=== PATIENT | female | born 1990 | race Two or more races ===

== ENCOUNTER 2016-11-20 02:03 | Outpatient (CLI) | payer OTHER ==
[~2016-11-20 02:03] MED LIST: LEXA1TAB PO
--- NOTE | 2016-11-20 03:03 | IPNPDOC ---
Text Note Date of Service The patient was seen on 11/20/16. NOTE Subjective: Tracie is a 26yo with an IUP at 39w5d who presents to triage for cramping and spotting after intercourse. She states she had intercourse around 5pm and noted cramping after. Then, when she got up in the night, she noted vaginal spotting. course uncomplicated and PMHx noncontributory. ROS: Admits: Gross movement, poor PO hydration Denies: loss of fluid, fever, N/V, dysuria, vaginal itching or pain. Objective: Vitals wnl, afebrile NST: FHT 130 with moderate variability, pos accels, neg decels. Reactive NST. [place]: 1 ctx Physical Exam- General: WDWN gravid female in NAD Mental : AAOx3 Abdominal: Soft NT/ND without guarding or rebound Extremity: trace edema in LE bilaterally (SCE chaperoned by RN): 1/80/-1, soft, mid, scant blood noted on exam glove Assessment: Tracie is a 26yo with an IUP at 39w5d without evidence of latent or active labor. SCE 1/80/-1 with scant spotting on exam glove. Vitals stable with benign physical exam. Reactive NST with 1 ctx. course uncomplicated and PMHx noncontributory. Plan: -labor precautions discussed -f/u at next scheduled OB appt next week - kick counts prn -encouraged increased hydration and discussed how both intercourse and dehydration lead to cramping -Return precautions given for increased bleeding, fluid loss, increasingly frequent/painful contractions, decreased movement -medrec reviewed Dr. Manjeet Bowie MD LauraMANJEET Acuna MD Nov 20, 2016 03:03
[2016-11-20] MEDS ORDERED: PRENTAB9 PO (10:09)
== END 2016-11-20 02:50 | disposition home or self-care (01) ==
LOC: M LDO 02:03
PROVIDERS: ATTEND Obstetrics & Gynecology
DX: O26.893 Other specified pregnancy related conditions, third trimester (principal); Z3A.39 39 weeks gestation of pregnancy

== ENCOUNTER 2016-11-20 09:08 | Inpatient (IN) | payer OTHER ==
[2016-11-20] VITALS (40 sets, daily range): BP systolic 99–177; BP diastolic 50–119
[~2016-11-20] VITALS: Ht 165.1 cm; Wt 80.0 kg
[2016-11-20] MEDS ORDERED: LR 1,000 ML IV SCH (09:28)
[2016-11-20] MEDS ORDERED: LACTATED RINGER'S 1000 ML IV ONE (09:30)
[2016-11-20 10:01] LABS: MEAN CORPUSCULAR HEMOGLOBIN 30.7 pg (27.0-33.0); MEAN CORPUSCULAR HGB CONC 34.9 g/dl (32.0-36.5); MEAN CORPUSCULAR VOLUME 88.2 fl (80.0-96.0); RED CELL DISTRIBUTION WIDTH 13.9 % (11.5-14.5); WHITE BLOOD COUNT 11.6 K/mm3 (4.0-10.0)
[2016-11-20] MEDS ORDERED: PRENTAB9 PO (10:09)
[2016-11-20] MEDS ORDERED: FENTANYL 2MCG/ML ROPIVACAINE 0.2% IN 0.9% NACL 200ML IVBAG As Ordered ONE (10:27)
[2016-11-20] MEDS ORDERED: diphenhydrAMINE INJ 50MG/ML VIAL (J1200) IV PRN (11:15)
[2016-11-20] MEDS ORDERED: LACTATED RINGER'S 1000 ML IV PRN (11:15)
[2016-11-20] MEDS ORDERED: REFRIGERATOR IV KEYS XX PRN (11:15)
[2016-11-20] MEDS ORDERED: EPIDURAL COMMENT XX SCH (11:15)
[2016-11-20] MEDS ORDERED: EPIDURAL/PCA KEYS XX PRN (11:15)
[2016-11-20] MEDS ORDERED: FENTANYL/ROPIVACAINE/NACL BAG 200 ML EPIDURAL SCH (11:15)
[2016-11-20] MEDS ORDERED: ONDANSETRON 4MG/2ML VIAL (J2405) IV PRN (11:15)
[2016-11-20] MEDS ORDERED: ePHEDrine SULFATE 25 MG/5 ML(5MG/ML) SYRINGE IV PRN (11:15)
[2016-11-20] MEDS ORDERED: NALOXONE INJ 0.4 MG/1 ML VIAL (J2310) IV PRN (11:15)
[2016-11-20] MEDS ORDERED: OXYTOCIN 30 UNITS IN 0.9% NaCl 500ML IV BAG (J2590) As Ordered ONE (17:11)
[2016-11-20 18:58] LABS: CORD GAS ABE V -8.8; CORD GAS HCO3 V 18.2 MEQ/L; CORD GAS PH V 7.245 UNITS; CORD GAS PO2 V 25.1 mmHg; CORD GAS SBC V 16.5 MEQ/L; CORD GAS TCO2 V 19.5 MEQ/L
[2016-11-20 18:59] LABS: CORD GAS ABE A -9.9; CORD GAS O2 SAT A < 15.0 %; CORD GAS PCO2 A 60.3 mmHg; CORD GAS PH A 7.138 UNITS; CORD GAS PO2 A 11.9 mmHg; CORD GAS TCO2 A 21.8 MEQ/L
[2016-11-20] MEDS ORDERED: OXYTOCIN DRIP 30 UNITS in APPROPRIATE DILUENT 1 EA IV SCH (19:36)
[2016-11-20] MEDS ORDERED: DOCUSATE SODIUM 100 MG CAP PO PRN (19:45)
[2016-11-20] MEDS ORDERED: MOM 30ML SUSPENSION UDC PO PRN (19:45)
[2016-11-20] MEDS ORDERED: MEASLES,MUMPS,RUBELLA VACCINE INJ (MMR-II) (90707) SC SCH (19:45)
[2016-11-20] MEDS ORDERED: OXYTOCIN INJ 10 UNITS/ML VIAL (J2590) IV ONE (19:45)
[2016-11-20] MEDS ORDERED: RHOGAM 300 MCG (1500 IU) INJ (J2790) IM SCH (19:45)
[2016-11-20] MEDS ORDERED: DIBUCAINE 1% OINTMENT 30GM TOP PRN (19:45)
[2016-11-20] MEDS ORDERED: IBUPROFEN 800 MG TAB PO PRN (19:45)
[2016-11-20] MEDS ORDERED: METHYLERGONOVINE MALEATE 0.2 MG TAB PO PRN (19:45)
[2016-11-20] MEDS ORDERED: ACETAMINOPHEN 500 MG TAB PO PRN (19:45)
[2016-11-20] MEDS ORDERED: OXYTOCIN INJ 10 UNITS/ML VIAL (J2590) As Ordered ONE (20:06)
--- NOTE | 2016-11-20 20:07 | HPE ---
DATE OF ADMISSION: 11/20/2016 This lady is a 26-year-old 1, para 0, last menstrual period (LMP) 02/16/2016, estimated date of confinement (EDC) 11/22/2016 at 39 and 5 in active labor. Her past history of significance is that she was admitted to inpatient mental health for depression and suicidal tendencies. Her labs are A+, HIV negative, hepatitis negative, RPR negative, rubella immune. Varicella immune. Pap normal. Urine negative. Gonorrhea and chlamydia are negative. One-hour glucose is 108. GBS was negative. She is presently a distressed female. Symphysis fundus height is 40, vertex occiput posterior (OP), -2 station, 70% effaced, bulging membranes, 3-4 cm. Blood pressure 119/74, respirations 18, pulse 86, temperature 99.4. Hemoglobin 12.2, hematocrit 37.1, platelets are 219. Urine is 1.020, pH 5, negative and trace of protein. The rest of the examination is unremarkable. We have a patient at 39 and 5 in active labor. Our plan is to do epidural at an interval time. Anticipate delivery. Category one strip at the present time. Copy To: [facility]
[2016-11-21 06:51] VITALS: BP 108/64
[2016-11-21 06:59] LABS: MEAN CORPUSCULAR HEMOGLOBIN 29.4 pg (27.0-33.0); MEAN CORPUSCULAR HGB CONC 33.1 g/dl (32.0-36.5); MEAN CORPUSCULAR VOLUME 88.7 fl (80.0-96.0); WHITE BLOOD COUNT 13.7 K/mm3 (4.0-10.0)
[2016-11-21] MEDS: PRENATAL VITAMIN TAB PO SCH (09:00)
--- NOTE | 2016-11-21 15:05 | IPN ---
DATE: 11/20/2016 This patient was examined by the nurse and found to be 9 cm dilated and contractions began to peter out. On examination, she has a bulging bag of membranes. Artificial rupture of membranes (AROM) with meconium stained liquor. She was fully dilated at minus one station. The patient was allowed to labor down. Neonatals were called regarding the meconium and we anticipate pushing in a very short period of time.
--- NOTE | 2016-11-21 15:05 | DN ---
DATE: 11/20/2016 This lady was fully dilated with artificial rupture of membranes. Had thick meconium- stained liquor. We notified neonatology. She had some episodes of bradycardia and tachycardia and eventually was caput showing and with persistent tachycardia, we explained to the patient and regarding a vacuum, risks and benefits. We then went ahead and used the vacuum. With 5 mm pressure we did two pulls to the perineum, removed the vacuum. She had a spontaneous vaginal delivery of a live- female , 6 pounds 14 ounces, 3112 grams, scores of 8 and 9 at one and five minutes, respectively. Arterial and venous pH was performed. Placenta spontaneously delivered with meconium stained liquor. Dr. Burnett in attendance for resuscitation. The uterus contracted well down on Pitocin. Examination showed a very thickened cervix. The anterior lip she was pushing on because it originally was a POP position. The lateral pandya, cervix, vagina, anterior and posterior pandya were normal. Sphincter was intact. The patient and baby tolerating procedure well.
--- NOTE | 2016-11-21 15:09 | IPN ---
DATE: 11/21/2016 This is a 26-year-old, 1, now para 1 admitted in active labor. She had a low vacuum two pulls to the perineum and then spontaneous vaginal delivery of a female, 6 pounds 14 ounces, 3112 grams, of 8 and 9 at one and five minutes respectively. Arterial pH was 7.13, base excess -9.9; venous pH 7.24, base excess -8.8. The low vacuum was because of prolonged bradycardia, but baby did well. On her first day, we discussed phlebitis, cystitis, mastitis, endometritis and cellulitis: diet, excise and pain management; perineal, breast and wound care. She does not want any control. She is going to use condoms. Today, her blood pressure is 108/64, respirations 18, pulse 84, temperature 98.1. Her admitting hemoglobin was 12.2, hematocrit 35.1 and platelets are 219. day #1, hemoglobin 10.8, hematocrit 32.5 and platelets are 167. The rest of the examination is unremarkable. She is normocephalic, atraumatic. Neck full range of motions. Pupils equal and reactive to light. Chest is clear bilaterally to bases. No wheezes or rhonchi. No costovertebral angle (CVA) tenderness. Distal pulses are symmetric. Uterus is 2 below. Lochia is moderate. Four quadrant bowel sounds are noted. Perineum is intact. She has no rashes, lesions or pruritus. No arthralgia or myalgia. She is not complaining of cough, wheeze, shortness of breath or dyspnea on exertion. No chest pain. Not bleeding. Neurologic complete. No incontinency, urgency or frequency. No nausea, vomiting, diarrhea or constipation. No diabetic issues. She has an unremarkable history. She does not smoke or drink or abuse drugs. She is and there is no domestic violence. She does suffer from depression, however, this is under control. In summary, we have a term gestation who delivered a live female . Plan is for discharge tomorrow.
[2016-11-21 18:00] VITALS: BP 119/66
[2016-11-22 06:12] VITALS: BP 116/55
[2016-11-22] MEDS: PRENATAL VITAMIN TAB PO SCH (09:06)
--- NOTE | 2016-11-22 10:34 | IPNPDOC ---
Text Note Date of Service The patient was seen on 11/22/16. NOTE Tracie is a 26yo [id number] doing well on PPD 2 s/p uncomplicated VAVD. She is bottle and breast feeding. Lochia normal, spontaneously voiding and ambulating without difficulty. Tolerating regular diet. Denies f/c/n/v/SOB/CP/HOPSON/abdominal pain. No depressed mood (PMhx significant for depression). Vitals wnl, afebrile Exam: General: WDWN, NAD, resting comfortably Cardiac: S1S2 present, no murmur Lungs: CTAB without wheeze/crackles Abdomen: soft, NTTP, fundus firm u-2cm Extremities: no tenderness of calves bilaterally Assessment: Tracie is a 26yo [id number] doing well on PPD 2 s/p uncomplicated VAVD. Meeting all milestones. No e/o infection, hemodynamically stable. Plan: -discharge to home with routine follow-up for 6wk PP visit -home meds already given from clinic stock -undecided for contraception Dr. Manjeet Bowie MD PendergrassAditi SHELLEY VS,Tim, I+O VSTim, I+O Vital Signs Date Time Temp Pulse Resp B/P (MAP) Pulse Ox O2 Delivery O2 Flow Rate FiO2 11/22/16 06:12 98.3 88 16 116/55 (75) MANJEET BOWIE MD Nov 22, 2016 10:34
[2016-11-22] MEDS ORDERED: IBUP-1114 PO (18:54)
[2016-11-22] MEDS ORDERED: COLA100C3 PO (18:54)
[2016-11-22] MEDS ORDERED: DIBU0.5O TOP (18:54)
[2016-11-22] MEDS ORDERED: ACET50TA PO (18:54)
== END 2016-11-22 21:10 | disposition home or self-care (01) | DRG 775 ==
LOC: M LDO 09:08 → OBSVTOIN 09:35 → M LDI 09:35 → INTOOBSV 09:35 → OBSVTOIN 09:36 → M OBS 21:13
PROVIDERS: ADMIT Obstetrics & Gynecology; ATTEND Obstetrics & Gynecology
PROC: 10D07Z6 Extraction of Products of Conception, Vacuum, Via Natural or Artificial Opening (ICD-10-PCS; principal; 2016-11-20)
PROC: 10907ZC Drainage of Amniotic Fluid, Therapeutic from Products of Conception, Via Natural or Artificial Opening (ICD-10-PCS; 2016-11-20)
DX: O76 Abnormality in fetal heart rate and rhythm complicating labor and delivery (principal); Z37.0 Single live birth; Z3A.39 39 weeks gestation of pregnancy; O77.0 Labor and delivery complicated by meconium in amniotic fluid

== ENCOUNTER 2017-06-21 00:14 | Emergency (ER) | payer OTHER ==
[~2017-06-21] VITALS: Ht 165.1 cm; Wt 70.5 kg
[~2017-06-21 00:14] MED LIST changes: +ACET50TA PO; +COLA100C5 PO; +DIBU0.5O TOP; +IBUP-1114 PO; +PRENTAB9 PO
[2017-06-21] MEDS ORDERED: CLEO300C2 PO (04:55)
[2017-06-21] MEDS ORDERED: CLINDAMYCIN 150 MG CAP PO ONE (05:00)
[2017-06-21 05:10] VITALS: BP 132/66
== END 2017-06-21 05:12 | disposition home or self-care (01) ==
LOC: M ED 00:14
DX: L03.012 Cellulitis of left finger (principal)

== ENCOUNTER 2017-10-06 11:17 | Day surgery (SDC) | payer OTHER ==
[2017-10-06] MEDS ORDERED: NS 1,000 ML IV (11:30)
[2017-10-06] MEDS ORDERED: PROPOFOL 200 MG/20 ML VIAL As Ordered ×2 (12:42→12:58)
[2017-10-06] MEDS ORDERED: LIDOCAINE 2% INJ 100 MG/5 ML SDV (FOR ANES.) As Ordered (12:42)
== END 2017-10-06 13:51 | disposition home or self-care (01) ==
LOC: M OPP 11:17
DX: K62.5 Hemorrhage of anus and rectum (principal); R19.7 Diarrhea, unspecified; K62.89 Other specified diseases of anus and rectum; K63.89 Other specified diseases of intestine; K51.911 Ulcerative colitis, unspecified with rectal bleeding; F41.9 Anxiety disorder, unspecified; F32.9 Major depressive disorder, single episode, unspecified; Z91.5 Personal history of self-harm; Z87.891 Personal history of nicotine dependence; K64.8 Other hemorrhoids
CPT/HCPCS: 45380

== ENCOUNTER → 2017-11-24 | Outpatient (CLI) | payer OTHER ==
[2017-11-24 12:30] LABS: BASO # 0.1 10^3/uL (0.0-0.2); BASO % 1.3 % (0.0-1.0); EOS # 0.2 10^3/uL (0.0-0.50); EOS % 3.6 % (0.0-3.0); HEMATOCRIT 35.7 % (36.0-47.0); HEMOGLOBIN 10.9 g/dl (12.0-15.5); IMMATURE GRANULOCYTE % 0.4 % (0-3.0); LYMPH # 1.4 10^3/uL (1.5-6.5); LYMPH % 29.9 % (24.0-44.0); MEAN CORPUSCULAR HEMOGLOBIN 23.7 pg (27.0-33.0); MEAN CORPUSCULAR HGB CONC 30.5 g/dl (32.0-36.5); MEAN CORPUSCULAR VOLUME 77.8 fl (80.0-96.0); MONO # 0.4 10^3/uL (0.0-0.8); MONO % 8.2 % (0.0-5.0); NEUTROPHILS # 2.7 10^3/uL (1.8-7.7); NEUTROPHILS % 56.6 % (36.0-66.0); PLATELET COUNT, AUTOMATED 262 10^3/uL (150-450); RED BLOOD COUNT 4.59 10^6/uL (4.00-5.40); RED CELL DISTRIBUTION WIDTH 15.7 % (11.5-14.5); WHITE BLOOD COUNT 4.8 10^3/uL (4.0-10.0)
[2017-11-24 13:05] LABS: C REACTIVE PROTEIN QUANTITATIV 0.53 MG/DL (0.00-0.30)
[2017-11-24 13:13] LABS: HEPATITIS B SURFACE ANTIBODY NEGATIVE (POSITIVE)
[2017-11-24 13:24] LABS: HEPATITIS B SURFACE ANTIGEN NEGATIVE (NEGATIVE)
[2017-11-24 14:03] LABS: ERYTHROCYTE SEDIMENTATION RATE 22 mm/hr (0-20)
[2017-11-26 14:13] LABS: QUANTIFERON GOLD TB Negative (Negative); TB Test (QFT) Antigen 0.05 IU/mL (.); TB Test (QFT) Antigen Minus Ni 0.01 IU/mL (.); TB Test (QFT) Mitogen >10.00 IU/mL (.); TB Test (QFT) Nil 0.04 IU/mL (.)
[2017-11-30 00:09] LABS: ANTI-SACCHAROMYCES CEREV. IgA <20.0 Units (0.0-24.9); ANTI-SACCHAROMYCES CEREV. IgG <20.0 Units (0.0-24.9); CYTOPLASMIC NEUTROP AB ANCA-C <1:20 titer (Neg:<1:20); HEPATITIS B CORE ANTIBODY IGG Negative (Negative); PERINUCLEAR AB ANCA-P <1:20 titer (Neg:<1:20)
== END ==
LOC: M LAB 11:02
DX: K51.90 Ulcerative colitis, unspecified, without complications (principal)
CPT/HCPCS: 86706

== ENCOUNTER → 2017-11-24 | Outpatient (REF) | payer OTHER ==
[2017-11-30 08:11] LABS: O+P EXAM Final report (.)
== END ==
LOC: M LAB REF 11-25 13:56
DX: K51.90 Ulcerative colitis, unspecified, without complications (principal)

== ENCOUNTER 2018-02-02 20:37 | Emergency (ER) | payer OTHER | END 2018-02-02 23:54 | disposition home or self-care (01) | LOC: M ED 20:37 | DX: N61.0 Mastitis without abscess (principal); F41.9 Anxiety disorder, unspecified; F32.9 Major depressive disorder, single episode, unspecified; K52.9 Noninfective gastroenteritis and colitis, unspecified; Z79.899 Other long term (current) drug therapy | CPT/HCPCS: 99283 ==